=== PATIENT | female | born 1965 | race Caucasian/White ===

== ENCOUNTER 2019-01-14 12:58 | Emergency (ER) | payer OTHER ==
[~2019-01-14] VITALS: Ht 162.6 cm; Wt 84.8 kg
[~2019-01-14 12:58] MED LIST: CYMBALTA60 MG; KETO10TA2 PO; LIOTHYRONINE S25 MCG; NEURONTIN600 MG; PREVACID30 MG PO; PROZAC20 MG; SEPTRA DS TABLE1 TAB PO; SYMBICORT 16010.2 GM; SYNTHROID137 MCG; SYNTHROID200 MCG PO; SYNTHROID50 MCG PO; SYNTROID; TRAMADOL HCL50 MG PO; ZOFRAN4 MG PO
[2019-01-14] MEDS ORDERED: valium PO (15:21)
[2019-01-14] MEDS ORDERED: NAPROXEN500 MG PO (15:21)
[2019-01-14] MEDS ORDERED: PROMETH-CODEIN 65 ML PO (15:24)
== END 2019-01-14 15:52 | disposition home or self-care (01) ==
LOC: ER 12:58
DX: M54.42 Lumbago with sciatica, left side (principal)

== ENCOUNTER 2024-05-11 11:49 | Emergency (ER) | payer OTHER ==
[~2024-05-11] VITALS: Ht 162.6 cm; Wt 108.9 kg
[~2024-05-11 11:49] MED LIST changes: +NAPROXEN500 MG PO; +PROMETH-CODEIN 65 ML PO; +valium PO
[2024-05-11 12:03] VITALS: BP 123/78; O2SAT 98
[2024-05-11] MEDS ORDERED: PANTOPRAZOLE SO40 MG PO (12:05)
[2024-05-11] MEDS ORDERED: LEVO-T25 MCG (12:05)
[2024-05-11] MEDS ORDERED: MOXIFLOXACIN H400 MG (12:06)
[2024-05-11] MEDS ORDERED: NORVASC2.5 M1 PO (12:07)
[2024-05-11] MEDS ORDERED: VISTARIL50 MG/ML IM (12:07)
[2024-05-11] MEDS ORDERED: ATACAND4 MG (12:07)
[2024-05-11] MEDS ORDERED: FAMOTIDINE20 MG PO (12:08)
[2024-05-11] MEDS ORDERED: KETOROLAC TROMETHAMINE 60 MG VIAL IM STA (13:01)
[2024-05-11 14:18] LABS: URINE APPEARANCE Clear; URINE BILIRRUBIN Negative (NEGATIVE); URINE BLOOD Negative; URINE COLOR Yellow; URINE GLUCOSE Negative (NEGATIVE); URINE KETONE Negative (NEGATIVE); URINE LEUKOCYTE Negative; URINE NITRATE Negative; URINE PROTEIN Negative (NEGATIVE); URINE UROBILINOGEN 0.2 E.U./dl
[2024-05-11 14:22] LABS: URINE BACTERIA 119.6 uL (0.0-1933); URINE EPITHELIAL CELLS 11.7 uL (0.0-38.8); URINE RBC 2.1 uL (0.0-20.8); URINE WBC 10.4 uL (0.0-23.2)
[2024-05-11 14:23] LABS: HEMATOCRIT 43.8 % (36.0-45.00); HEMOGLOBIN 14.3 g/dL (12.0-15.00); MEAN CELL VOLUME 86.1 fL (80.00-100.00); MEAN CORPUSCULAR HGB CONC 32.5 g/dl (32.0-36.0); PLATELET COUNT 388 K/uL (150-450); RED BLOOD COUNT 5.09 M/uL (4.00-6.00); RED CELL DISTRIBUTION WIDTH 14.7 % (11.5-14.5)
[2024-05-11 14:30] LABS: URINE CAST 0.61 uL (0.0-1.40)
[2024-05-11 14:51] LABS: CALCIUM 9.7 mg/dL (8.5-10.1); GFR 57.15; POTASSIUM 3.94 mEq/L (3.5-5.1)
== END 2024-05-11 16:34 | disposition home or self-care (01) ==
LOC: ER 11:51
PROVIDERS: General Practice
DX: M94.0 Chondrocostal junction syndrome [Tietze] (principal); R10.9 Unspecified abdominal pain; I10 Essential (primary) hypertension; E03.8 Other specified hypothyroidism; Z88.5 Allergy status to narcotic agent